=== PATIENT | male | born 1980 | race Caucasian/White ===

== ENCOUNTER 2018-01-17 07:53 | Emergency (ER) | payer OTHER ==
[2018-01-17] MEDS ORDERED: ONDANSETRON 4 MG/2 ML VIAL IVP ONE (08:14)
[2018-01-17] MEDS ORDERED: NS 1,000 ML IV ONE (08:14)
--- NOTE | 2018-01-17 08:18 | EDPHY ---
H & P Stated Complaint: Mid abd pain/burning off and on since Thursday;+vomiting Time Seen by Provider: 01/17/18 08:01 HPI/ROS: Chief Complaint: Abdominal pain HPI: 37-year-old male presenting with abdominal pain. Patient 1st had pain 3 nights ago after dinner. Described as a severe upper abdominal burning pain. At that time the pain was a 10/10. Persisted all night long. Multiple episodes of bilious vomiting. No diarrhea or constipation. By the morning the pain had gone away. He has been feeling well for the last 2 days but that began last night after dairy started having the pain again. It was again in the upper abdomen. Nonradiating. There are no aggravating or alleviating factors. No fevers or chills. No coffee-ground emesis. No blood in his vomit. No melena or blood per rectum. No urinary urgency or frequency. He is 3 weeks status post vasectomy but has been doing well. No intra-abdominal surgeries. Pain right now is about a 7/10. He does use infrequent marijuana, about once a week. Did state that the symptoms occurred after having use marijuana earlier that day. ROS: 10 point Review of Systems is negative except as noted in the HPI. PMH: Denies Social History: No smoking, occasional alcohol, marijuana about once a week Family History: non-contributory Physical Exam: Gen: Awake, Alert, No Distress HEENT: Nose: no rhinorrhea Eyes: PERRLA, EOMI Mouth: Moist mucosa Neck: Supple, no JVD Chest: nontender, lungs clear to auscultation Heart: S1, S2 normal, no murmur Abd: Soft, moderate right upper quadrant tenderness with positive Light sign, no lower abdominal tenderness Back: no CVA tenderness, no midline tenderness Ext: no edema, non-tender Skin: no rash Neuro: CN II-XII intact, Sensation grossly intact, Strength 5/5 in bilateral upper and lower extremities - Personal History Current Tetanus Diphtheria and Acellular Pertussis (TDAP): Yes - Medical/Surgical History Other PMH: neg per pt - Social History Smoking Status: Never smoked Constitutional: Initial Vital Signs Temperature (C) 37.1 C 01/17/18 07:54 Heart Rate 63 01/17/18 07:54 Respiratory Rate 16 01/17/18 07:54 Blood Pressure 150/87 H 01/17/18 07:54 O2 Sat (%) 98 01/17/18 07:54 O2 Delivery Mode Room Air Allergies/Adverse Reactions: No Known Allergies Allergy (Unverified 01/17/18 07:58) Home Medications: Medication Instructions Recorded NK [No Known Home Meds] 01/17/18 Medical Decision Making - Diagnostics Imaging Results: Imaging Impressions Abdomen Ultrasound 01/17/18 08:14 Impression: Cholelithiasis with secondary findings to support a clinical diagnosis of acute cholecystitis. Results called and discussed with Tenzin Holder MD on 01/17/2018 at 9:59 Imaging: Discussed imaging studies w/ call center operator Radiologist ED Course/Re-evaluation: Right upper quadrant ultrasound consistent with acute cholecystitis. Patient is a [place] patient. I have discussed with Dr. Weeks, [facility]. Patient will be accepted to [facility] under Dr. Naylor For acute cholecystectomy. Patient is hemodynamically normal. He has got received IV Invanz here. Patient will go via private car, his is able to take him. - Data Points Laboratory Results: Laboratory Results 01/17/18 08:16 01/17/18 08:12 01/17/18 01/17/18 01/17/18 08:32 08:16 08:12 WBC 13.16 10^3/uL H 10^3/uL (3.80-9.50) RBC 4.85 10^6/uL 10^6/uL (4.40-6.38) Hgb 15.1 g/dL g/dL (13.7-17.5) Hct 44.1 % % (40.0-51.0) MCV 90.9 fL fL (81.5-99.8) MCH 31.1 pg pg (27.9-34.1) MCHC 34.2 g/dL g/dL (32.4-36.7) RDW 11.9 % % (11.5-15.2) Plt Count 230 10^3/uL 10^3/uL (150-400) MPV 10.2 fL fL (8.7-11.7) Neut % (Auto) 81.4 % H % (39.3-74.2) Lymph % (Auto) 8.4 % L % (15.0-45.0) [place] % (Auto) 9.2 % % (4.5-13.0) Eos % (Auto) 0.1 % L % (0.6-7.6) Baso % (Auto) 0.4 % % (0.3-1.7) Nucleat RBC Rel Count 0.0 % % (0.0-0.2) Absolute Neuts (auto) 10.72 10^3/uL H 10^3/uL (1.70-6.50) Absolute Lymphs (auto) 1.11 10^3/uL 10^3/uL (1.00-3.00) Absolute Monos (auto) 1.21 10^3/uL H 10^3/uL (0.30-0.80) Absolute Eos (auto) 0.01 10^3/uL L 10^3/uL (0.03-0.40) Absolute Basos (auto) 0.05 10^3/uL 10^3/uL (0.02-0.10) Absolute Nucleated RBC 0.00 10^3/uL 10^3/uL (0-0.01) Immature Gran % 0.5 % % (0.0-1.1) Immature Gran # 0.06 10^3/uL 10^3/uL (0.00-0.10) Sodium 140 mEq/L mEq/L (135-145) Potassium 3.8 mEq/L mEq/L (3.5-5.2) Chloride 99 mEq/L mEq/L (97-110) Carbon Dioxide 22 mEq/l mEq/l (22-31) Anion Gap 19 mEq/L H mEq/L (8-16) BUN 11 mg/dL mg/dL (7-23) Creatinine 0.9 mg/dL mg/dL (0.7-1.3) Estimated GFR > 60 Glucose 129 mg/dL H mg/dL (70-100) Calcium 9.8 mg/dL mg/dL (8.5-10.4) Total Bilirubin 1.9 mg/dL H mg/dL (0.1-1.4) AST 24 IU/L IU/L (17-59) ALT 43 IU/L IU/L (21-72) Alkaline Phosphatase 65 IU/L IU/L (38-126) Total Protein 8.0 g/dL g/dL (6.3-8.2) Albumin 4.8 g/dL g/dL (3.5-5.0) Lipase 62 IU/L IU/L (23-300) Urine Color YELLOW Urine Appearance CLEAR Urine pH 6.0 (5.0-7.5) Ur Specific [place] 1.026 (1.002-1.030) Urine Protein 1+ H (NEGATIVE) Urine Ketones 2+ H (NEGATIVE) Urine Blood NEGATIVE (NEGATIVE) Urine Nitrate NEGATIVE (NEGATIVE) Urine Bilirubin NEGATIVE (NEGATIVE) Urine Urobilinogen 2.0 EU H EU (0.2-1.0) Ur Leukocyte Esterase NEGATIVE (NEGATIVE) Urine RBC 1-3 /hpf /hpf (0-3) Urine WBC 1-3 /hpf /hpf (0-3) Ur Epithelial Cells NONE SEEN /lpf /lpf (NONE-1+) Urine Mucus TRACE /lpf /lpf (NONE-1+) Urine Glucose NEGATIVE (NEGATIVE) Medications Given: Discontinued Medications Ertapenem (Invanz) 1 gm IV EDNOW ONE PRN Reason: Protocol Stop: 01/17/18 10:07 Last Admin: 01/17/18 10:23 Dose: 1 gm Sodium Chloride (Ns) 1,000 mls @ 0 mls/hr IV ONCE ONE; Wide Open PRN Reason: Protocol Stop: 01/17/18 08:15 Last Admin: 01/17/18 08:23 Dose: 1,000 mls Morphine Sulfate (Morphine) 4 mg IVP ONCE ONE Stop: 01/17/18 08:15 Last Admin: 01/17/18 08:26 Dose: 4 mg Ondansetron HCl (Zofran) 4 mg IVP EDNOW ONE Stop: 01/17/18 08:15 Last Admin: 01/17/18 08:23 Dose: 4 mg Departure - Departure Disposition: Acute Care Hospital Not [facility] Clinical Impression: Acute cholecystitis Condition: Fair
[2018-01-17 08:25] LABS: PLATELET COUNT 230 10^3/uL (150-400)
[2018-01-17] MEDS ORDERED: ERTAPENEM 1 GM VIAL IV ONE (10:06)
[2018-01-17 11:20] VITALS: BP 147/85; PULSE 73; RESP 18; TEMP 101.7; O2SAT 94
== END 2018-01-17 11:39 | disposition short-term general hospital (02) ==
DX: K81.9 Cholecystitis, unspecified (principal); E86.9 Volume depletion, unspecified
CPT/HCPCS: 96374; J1335; J2270; J2405